=== PATIENT | female | born 1965 | race Caucasian/White ===

== ENCOUNTER 2017-03-07 14:34 | Observation (INO) | payer MEDICAID ==
[~2017-03-07] VITALS: Ht 157.5 cm; Wt 77.1 kg
[~2017-03-07 14:34] MED LIST: CHOL20007 OR; GABA-498 PO; GLIP-115 PO; LACO200T PO; METF-370 PO; NOR10T PO; TIZA4CAP5 PO; TOPI200T43 PO; VENL37.56 PO
[2017-03-07] MEDS ORDERED: SODIUM CHLORIDE 0.9% 1,000 ML IVB ONE (16:12)
[2017-03-07] MEDS ORDERED: ONDANSETRON HCL 4 MG/2 ML VIAL IV ONE (16:15)
[2017-03-07 17:00] LABS: Basophils # (auto) 0.1 uL; Basophils % (auto) 0.6 % (0.0-2.0); CONDITION Y; Eosinophils # (auto) 0.3 uL; Eosinophils % (auto) 2.5 % (0.0-7.0); Hematocrit 42.2 % (36.0-46.0); Lymphocytes # (auto) 4.2 uL; Lymphocytes % (auto) 41.7 % (10.0-50.0); Mean Corpuscular Hgb Conc. 33.2 g/dL (32.0-36.0); Mean Corpuscular Volume 93.4 fL (80.0-100.0); Mean Platelet Volume 8.8 fL (7.4-10.4); Monocytes # (auto) 0.5 uL; Neutrophils # (auto) 5.1 uL; Neutrophils % (auto) 50.2 % (37.0-80.0); Platelet Count (auto) 257 10^3/uL (140-450); Red Cell Distribution Width 12.8 % (11.6-16.0); White Blood Cell 10.1 10^3/uL (4.4-10.8)
[2017-03-07 17:14] LABS: INR 0.89 (0.9-1.15); Partial Thromboplastin Time 25.5 sec (22.64-33.71); Prothrombin Time 9.7 sec (9.37-12.3)
[2017-03-07 17:26] LABS: Albumin 3.6 g/dL (3.4-5.0); Anion Gap 9 (5-15); Aspartate Aminotransferase 12 U/L (15-37); BUN/Creatinine Ratio 16.7; Blood Urea Nitrogen 18 mg/dL (7-18); Calcium 8.4 mg/dL (8.5-10.1); Carbon Dioxide 23 mmol/L (21-32); Chloride 112 mmol/L (98-107); GFR African American 69 mL/min; GFR Non-African American 57 mL/min; Glucose 91 mg/dL (74-106); Magnesium 2.3 mg/dL (1.6-2.6); Potassium 4.3 mmol/L (3.5-5.1); Sodium 144 mmol/L (136-145)
[2017-03-07 17:31] LABS: Alkaline Phosphatase 90 U/L (45-117); Bilirubin, Total 0.2 mg/dL (0.2-1.0); Total Protein 7.9 g/dL (6.4-8.2)
[2017-03-07] MEDS ORDERED: HYDROcodone-ACET 5/325MG TAB PO ONE (19:30)
[2017-03-07 19:39] VITALS: BP 113/61
== END 2017-03-07 20:47 | disposition home or self-care (01) | DRG 53 ==
LOC: EDBD 14:34 → ER 14:34 → OVERFLOW 16:13 → ER 20:47
PROVIDERS: ADMIT Family Medicine; ATTEND Family Medicine
DX: R56.9 Unspecified convulsions (principal); I10 Essential (primary) hypertension; E11.9 Type 2 diabetes mellitus without complications; Z87.891 Personal history of nicotine dependence; Z82.3 Family history of stroke; Z82.49 Family history of ischemic heart disease and other diseases of the circulatory system; Z83.3 Family history of diabetes mellitus; Z86.011 Personal history of benign neoplasm of the brain; W01.10XA Fall on same level from slipping, tripping and stumbling with subsequent striking against unspecified object, initial encounter; Y93.89 Activity, other specified; Y92.89 Other specified places as the place of occurrence of the external cause; Y99.8 Other external cause status
CPT/HCPCS: 36415; 70450; 71010; 80053; 83735; 84484; 85025; 85610; 85730; 96361; 96374; G0378; J2405

== ENCOUNTER 2020-03-12 10:51 | Emergency (ER) | payer MEDICAID ==
[~2020-03-12] VITALS: Ht 144.8 cm; Wt 68.9 kg
[~2020-03-12 10:51] MED LIST changes: -GABA-498 PO; +GABA400C11 PO; -GLIP-115 PO; +GLIP5TAB12 PO; +TIZA4CAP PO; -TIZA4CAP5 PO; +VENL37.511 PO; -VENL37.56 PO
[2020-03-12 11:09] VITALS: BP 151/98
== END 2020-03-12 13:18 | disposition home or self-care (01) ==
LOC: ER 10:51
DX: R50.9 Fever, unspecified (principal); R07.89 Other chest pain; J02.9 Acute pharyngitis, unspecified; E11.9 Type 2 diabetes mellitus without complications; K21.9 Gastro-esophageal reflux disease without esophagitis; I10 Essential (primary) hypertension; F41.9 Anxiety disorder, unspecified; F32.9 Major depressive disorder, single episode, unspecified; Z20.828 Contact with and (suspected) exposure to other viral communicable diseases; Z90.49 Acquired absence of other specified parts of digestive tract; Z79.899 Other long term (current) drug therapy; Z87.891 Personal history of nicotine dependence; Z88.1 Allergy status to other antibiotic agents
CPT/HCPCS: 71045; 99284; U0003

== ENCOUNTER 2021-02-21 11:57 | Inpatient (IN) | payer MEDICAID ==
[~2021-02-21] VITALS: Ht 154.9 cm; Wt 69.4 kg
[~2021-02-21 11:57] MED LIST changes: +VENL1TAB97 PO; -VENL37.511 PO
[2021-02-21] MEDS ORDERED: SODIUM CHLORIDE 0.9% 1,000 ML IV ONE (12:15)
[2021-02-21 13:38] LABS: Urine Bacteria NONE SEEN /hpf (None Seen); Urine Blood Negative /uL (Negative); Urine Specific Gravity 1.019 (1.001-1.035); Urine WBC 1 /hpf (0 - 5)
[2021-02-21 14:12] LABS: Basophils # (auto) 0.1 10 ^3/uL (0-0.2); Basophils % (auto) 0.6 % (0.0-2.0); Eosinophils # (auto) 0.1 10 ^3/uL (0-0.8); Eosinophils % (auto) 0.8 % (0.0-7.0); Hematocrit 39.6 % (36.0-46.0); Hemoglobin 13.6 g/dL (12.2-16.2); Lymphocytes # (auto) 1.5 10 ^3/uL (0.4-5.4); Lymphocytes % (auto) 10.3 % (10.0-50.0); Mean Corpuscular Hgb Conc. 34.5 g/dL (32.0-36.0); Mean Corpuscular Volume 92.8 fL (80.0-100.0); Monocytes # (auto) 0.6 10 ^3/uL (0-1.3); Monocytes % (auto) 4.3 % (0.0-12.0); Neutrophils # (auto) 12.3 10 ^3/uL (1.6-8.6); Nucleated Red Blood Cells % 0.1 %; Red Blood Cells 4.26 10^6/uL (4.0-5.20); Red Cell Distribution Width 12.6 % (11.8-14.3); White Blood Cell 14.6 10^3/uL (4.4-10.8)
[2021-02-21 14:33] LABS: Albumin 3.7 g/dL (3.4-5.0); Calcium 8.5 mg/dL (8.5-10.1); Potassium 4.4 mmol/L (3.5-5.1)
[2021-02-21 14:39] LABS: BUN/Creatinine Ratio 21.9; Bilirubin, Total 0.2 mg/dL (0.2-1.0); Total Protein 7.8 g/dL (6.4-8.2)
[2021-02-21] MEDS ORDERED: ENOXAPARIN SOD 80 MG/0.8ML SYRINGE SC ONE (15:30)
[2021-02-21] MEDS ORDERED: LACTULOSE 20Gm/30ML SOLN PO PRN (17:30)
[2021-02-21] MEDS ORDERED: NITROGLYCERIN 0.4 MG SL TAB SL PRN (17:30)
[2021-02-21] MEDS ORDERED: DEXTROSE (50%) 50ML SYRG IV PRN (17:30)
[2021-02-21] MEDS ORDERED: MORPHINE SULFATE INJECTION 2 MG/ML SYRG IV PRN (17:30)
[2021-02-21] MEDS: HYDROcodone-ACET 10/325MG TAB PO PRN (20:51)
[2021-02-21 22:00] VITALS: BP 112/68
[2021-02-21] MEDS: InsuLIN REG 1unit/0.01ml Soln (100units/ml) SC SCH (22:00)
[2021-02-21] MEDS: DOCUSATE SOD 100 MG CAP PO SCH (22:46)
[2021-02-21] MEDS: ACCU-CHEK COMFORT CURVE STRIP VI SCH (22:46)
[2021-02-22] VITALS (10 sets, daily range): BP systolic 95–123; BP diastolic 48–68
[2021-02-22] MEDS ORDERED: PNEUMOCOCCAL VACC POLYS 25 MCG/0.5 ML VIAL IM ONE (01:00)
[2021-02-22] MEDS: HYDROcodone-ACET 10/325MG TAB PO PRN ×3 (02:47→14:40)
[2021-02-22] MEDS ORDERED: HYDR-4902 PO (03:20)
[2021-02-22] MEDS: ACCU-CHEK COMFORT CURVE STRIP VI SCH ×4 (06:47→21:36)
[2021-02-22] MEDS: InsuLIN REG 1unit/0.01ml Soln (100units/ml) SC SCH ×4 (06:47→21:59)
[2021-02-22 07:18] LABS: Basophils # (auto) 0 10 ^3/uL (0-0.2); Basophils % (auto) 0.4 % (0.0-2.0); Eosinophils # (auto) 0.5 10 ^3/uL (0-0.8); Eosinophils % (auto) 4.4 % (0.0-7.0); Hematocrit 37.3 % (36.0-46.0); Hemoglobin 13.1 g/dL (12.2-16.2); Lymphocytes # (auto) 5.2 10 ^3/uL (0.4-5.4); Mean Corpuscular Hemoglobin 32.5 pg (28.0-32.0); Mean Corpuscular Volume 92.8 fL (80.0-100.0); Monocytes # (auto) 0.6 10 ^3/uL (0-1.3); Neutrophils # (auto) 4.1 10 ^3/uL (1.6-8.6); Neutrophils % (auto) 39.2 % (37.0-80.0); Red Blood Cells 4.02 10^6/uL (4.0-5.20); Red Cell Distribution Width 12.6 % (11.8-14.3); White Blood Cell 10.4 10^3/uL (4.4-10.8)
[2021-02-22 07:41] LABS: Albumin 3.3 g/dL (3.4-5.0); Calcium 8.2 mg/dL (8.5-10.1); Potassium 3.5 mmol/L (3.5-5.1)
[2021-02-22 07:45] LABS: BUN/Creatinine Ratio 17.4; Bilirubin, Total 0.3 mg/dL (0.2-1.0)
[2021-02-22] MEDS: DOCUSATE SOD 100 MG CAP PO SCH ×2 (09:55→21:36)
[2021-02-22] MEDS ORDERED: PANTOPRAZOLE 40 MG/10 ML VIAL INJ IV ONE (12:30)
[2021-02-22] MEDS: ONDANSETRON HCL 4 MG/2 ML VIAL IV PRN (21:59)
[2021-02-22] MEDS ORDERED: LORazepam 2MG/ML-1ML VIAL IV PRN (22:15)
[2021-02-23] VITALS (10 sets, daily range): BP systolic 95–128; BP diastolic 45–78
[2021-02-23] MEDS: VENLAFAXINE HCL 37.5mg XR cap PO SCH ×3 (01:48→21:14)
[2021-02-23] MEDS: HYDROcodone-ACET 10/325MG TAB PO PRN ×3 (06:17→16:29)
[2021-02-23] MEDS: ACCU-CHEK COMFORT CURVE STRIP VI SCH ×4 (06:28→21:14)
[2021-02-23] MEDS: InsuLIN REG 1unit/0.01ml Soln (100units/ml) SC SCH ×4 (06:28→21:17)
[2021-02-23 06:43] LABS: Cholesterol 124 mg/dL (< 200)
[2021-02-23 06:46] LABS: HDL Cholesterol 60 mg/dL (40-59); LDL Cholesterol 51 mg/dL (< 100); Triglycerides 56 mg/dL (< 150)
[2021-02-23] MEDS: DOCUSATE SOD 100 MG CAP PO SCH ×2 (10:34→21:13)
[2021-02-23] MEDS: PANTOPRAZOLE 40 MG/10 ML VIAL INJ IV SCH (10:34)
[2021-02-23] MEDS: LACOSAMIDE 50 MG TAB PO SCH ×2 (10:35→21:13)
[2021-02-24] MEDS: HYDROcodone-ACET 10/325MG TAB PO PRN ×4 (03:29→18:13)
[2021-02-24] MEDS: MORPHINE SULFATE INJECTION 2 MG/ML SYRG IV PRN ×4 (04:18→19:44)
[2021-02-24 05:00] VITALS: BP 130/78
[2021-02-24] MEDS: ACCU-CHEK COMFORT CURVE STRIP VI SCH ×4 (06:00→20:52)
[2021-02-24] MEDS: InsuLIN REG 1unit/0.01ml Soln (100units/ml) SC SCH ×4 (06:01→20:49)
[2021-02-24 09:00] VITALS: BP 109/58
[2021-02-24] MEDS: DOCUSATE SOD 100 MG CAP PO SCH ×2 (10:25→20:52)
[2021-02-24] MEDS: VENLAFAXINE HCL 37.5mg XR cap PO SCH ×2 (10:25→20:52)
[2021-02-24] MEDS: PANTOPRAZOLE 40 MG/10 ML VIAL INJ IV SCH (10:25)
[2021-02-24] MEDS: LACOSAMIDE 50 MG TAB PO SCH ×2 (10:25→20:53)
[2021-02-24 13:00] VITALS: BP 141/67
[2021-02-24 16:58] VITALS: BP 111/59
[2021-02-24] MEDS: ONDANSETRON HCL 4 MG/2 ML VIAL IV PRN (19:45)
[2021-02-24 23:39] VITALS: BP 122/65
[2021-02-25] MEDS: MORPHINE SULFATE INJECTION 2 MG/ML SYRG IV PRN ×3 (02:08→16:52)
[2021-02-25] MEDS: ONDANSETRON HCL 4 MG/2 ML VIAL IV PRN (02:08)
[2021-02-25 05:32] VITALS: BP 115/52
[2021-02-25] MEDS: ACCU-CHEK COMFORT CURVE STRIP VI SCH ×4 (05:34→20:44)
[2021-02-25] MEDS: InsuLIN REG 1unit/0.01ml Soln (100units/ml) SC SCH ×4 (05:34→20:43)
[2021-02-25] MEDS: PANTOPRAZOLE 40 MG/10 ML VIAL INJ IV SCH (08:41)
[2021-02-25] MEDS: DOCUSATE SOD 100 MG CAP PO SCH ×2 (08:41→20:44)
[2021-02-25] MEDS: VENLAFAXINE HCL 37.5mg XR cap PO SCH ×2 (08:42→20:44)
[2021-02-25 09:00] VITALS: BP_SYST 11; BP_SYST 111; BP_DIAS 72
[2021-02-25] MEDS: LACOSAMIDE 50 MG TAB PO SCH ×2 (09:47→20:44)
[2021-02-25] MEDS: HYDROcodone-ACET 10/325MG TAB PO PRN (12:04)
[2021-02-25] MEDS ORDERED: KETOROLAC TROMETH 30 MG/ML 1ML VIAL IV ONE (12:45)
[2021-02-25] MEDS ORDERED: KETOROLAC TROMETH 30 MG/ML 1ML VIAL IV PRN (12:45)
[2021-02-25 13:00] VITALS: BP 148/81
[2021-02-25 17:00] VITALS: BP 135/78
[2021-02-25 22:00] VITALS: BP 115/67
[2021-02-26] MEDS: MORPHINE SULFATE INJECTION 2 MG/ML SYRG IV PRN (00:25)
[2021-02-26 05:00] VITALS: BP 108/60
[2021-02-26] MEDS: ACCU-CHEK COMFORT CURVE STRIP VI SCH (05:38)
[2021-02-26] MEDS: InsuLIN REG 1unit/0.01ml Soln (100units/ml) SC SCH (05:38)
[2021-02-26 09:00] VITALS: BP 126/58
[2021-02-26 09:01] VITALS: BP 126/58
[2021-02-26] MEDS: DOCUSATE SOD 100 MG CAP PO SCH (10:00)
[2021-02-26] MEDS: VENLAFAXINE HCL 37.5mg XR cap PO SCH (10:00)
[2021-02-26] MEDS: PANTOPRAZOLE 40 MG/10 ML VIAL INJ IV SCH (10:00)
[2021-02-26] MEDS: LACOSAMIDE 50 MG TAB PO SCH (10:00)
== END 2021-02-26 11:10 | disposition home or self-care (01) | DRG 53 ==
LOC: EDBD 11:57 → ER 11:57 → TELE 17:17 → TELE-WESTW 20:10
PROVIDERS: ADMIT Internal Medicine; ATTEND Internal Medicine
PROC: 3E00X4Z Introduction of Serum, Toxoid and Vaccine into Skin and Mucous Membranes, External Approach (ICD-10-PCS; principal; 2021-02-21)
DX: G40.909 Epilepsy, unspecified, not intractable, without status epilepticus (principal); E03.9 Hypothyroidism, unspecified; E11.9 Type 2 diabetes mellitus without complications; K59.00 Constipation, unspecified; F41.9 Anxiety disorder, unspecified; K20.90 Esophagitis, unspecified without bleeding; K29.70 Gastritis, unspecified, without bleeding; Z80.0 Family history of malignant neoplasm of digestive organs; Z80.1 Family history of malignant neoplasm of trachea, bronchus and lung; Z80.3 Family history of malignant neoplasm of breast; Z80.51 Family history of malignant neoplasm of kidney; Z82.49 Family history of ischemic heart disease and other diseases of the circulatory system; Z82.3 Family history of stroke; Z83.3 Family history of diabetes mellitus; Z86.011 Personal history of benign neoplasm of the brain; Z87.891 Personal history of nicotine dependence; Z91.410 Personal history of adult physical and sexual abuse; I10 Essential (primary) hypertension; F32.9 Major depressive disorder, single episode, unspecified; K21.9 Gastro-esophageal reflux disease without esophagitis; Z20.822 Contact with and (suspected) exposure to COVID-19; Z88.1 Allergy status to other antibiotic agents; Z88.8 Allergy status to other drugs, medicaments and biological substances; G43.909 Migraine, unspecified, not intractable, without status migrainosus; H81.319 Aural vertigo, unspecified ear; Z23 Encounter for immunization
CPT/HCPCS: 36415; 70551; 71045; 74176; 80053; 80061; 81001; 82962; 83036; 83690; 84484; 85025; 85049; 87081; 87426; 93005; 96360; 96361; 96372; C9113; G0378; J1815; J1885; J2405

== ENCOUNTER 2022-02-08 15:56 | Inpatient (IN) | payer MEDICAID ==
[~2022-02-08] VITALS: Ht 144.8 cm; Wt 65.9 kg
[~2022-02-08 15:56] MED LIST changes: -CHOL20007 OR; -GABA400C11 PO; +HYDR-4902 PO; -NOR10T PO
[2022-02-08] MEDS ORDERED: LACTATED RINGER'S 1,000 ML IV ONE (20:30)
[2022-02-08] MEDS ORDERED: DexAMETHasone SOD PHOS 10MG/1ML VIAL INJ IV ONE (20:30)
[2022-02-08] MEDS ORDERED: METOCLOPRAMIDE HCL 5MG/ml INJ 2ml VIAL IV ONE (20:30)
[2022-02-08] MEDS ORDERED: MAGNESIUM SULFATE 1GM/100ML 100 ML IV ONE (20:30)
[2022-02-08] MEDS ORDERED: HYDROcodone-ACET 5/325MG TAB PO ONE (20:30)
[2022-02-08] MEDS ORDERED: diphenhdrAMINE HCL 50 MG/1 ML VL IV ONE (20:30)
[2022-02-08 21:14] LABS: Basophils # (auto) 0.1 10 ^3/uL (0-0.2); Basophils % (auto) 0.7 % (0.0-2.0); Eosinophils # (auto) 0.5 10 ^3/uL (0-0.8); Eosinophils % (auto) 3.9 % (0.0-7.0); Hematocrit 40.5 % (36.0-46.0); Hemoglobin 13.3 g/dL (12.2-16.2); Lymphocytes # (auto) 5.8 10 ^3/uL (0.4-5.4); Lymphocytes % (auto) 48.4 % (10.0-50.0); Mean Corpuscular Hemoglobin 30.6 pg (28.0-32.0); Mean Corpuscular Hgb Conc. 32.9 g/dL (32.0-36.0); Mean Corpuscular Volume 93.2 fL (80.0-100.0); Monocytes # (auto) 0.8 10 ^3/uL (0-1.3); Monocytes % (auto) 6.4 % (0.0-12.0); Neutrophils # (auto) 4.9 10 ^3/uL (1.6-8.6); Neutrophils % (auto) 40.6 % (37.0-80.0); Red Blood Cells 4.35 10^6/uL (4.0-5.20); Red Cell Distribution Width 12.5 % (11.8-14.3)
[2022-02-08 21:48] LABS: Albumin 3.3 g/dL (3.4-5.0); Magnesium 1.7 mg/dL (1.6-2.6); Potassium 3.7 mmol/L (3.5-5.1)
[2022-02-08 21:51] LABS: Bilirubin, Total 0.2 mg/dL (0.2-1.0); Total Protein 6.7 g/dL (6.4-8.2)
[2022-02-09] MEDS ORDERED: MORPHINE SULFATE INJ 2 MG/ml SYRG IV PRN (02:15)
[2022-02-09] MEDS ORDERED: NITROGLYCERIN 0.4 MG SL TAB SL PRN (02:15)
[2022-02-09] MEDS: HYDROcodone-ACET 5/325MG TAB PO PRN ×2 (02:40→09:47)
[2022-02-09 06:20] LABS: Basophils # (auto) 0 10 ^3/uL (0-0.2); Basophils % (auto) 0.2 % (0.0-2.0); Eosinophils # (auto) 0 10 ^3/uL (0-0.8); Eosinophils % (auto) 0.1 % (0.0-7.0); Hematocrit 41.3 % (36.0-46.0); Hemoglobin 13.5 g/dL (12.2-16.2); Lymphocytes # (auto) 1.2 10 ^3/uL (0.4-5.4); Lymphocytes % (auto) 18.3 % (10.0-50.0); Mean Corpuscular Hemoglobin 30.8 pg (28.0-32.0); Mean Corpuscular Hgb Conc. 32.7 g/dL (32.0-36.0); Mean Corpuscular Volume 94.2 fL (80.0-100.0); Monocytes # (auto) 0.1 10 ^3/uL (0-1.3); Monocytes % (auto) 1.4 % (0.0-12.0); Neutrophils # (auto) 5.1 10 ^3/uL (1.6-8.6); Red Blood Cells 4.38 10^6/uL (4.0-5.20); Red Cell Distribution Width 12.3 % (11.8-14.3); White Blood Cell 6.4 10^3/uL (4.4-10.8)
[2022-02-09 06:38] LABS: Albumin 3.6 g/dL (3.4-5.0); Calcium 9.1 mg/dL (8.5-10.1); Potassium 4.7 mmol/L (3.5-5.1)
[2022-02-09 06:42] VITALS: BP 127/64
[2022-02-09 06:42] LABS: BUN/Creatinine Ratio 24.2; Bilirubin, Total 0.3 mg/dL (0.2-1.0); Total Protein 7.8 g/dL (6.4-8.2)
[2022-02-09 08:57] VITALS: BP 109/65
[2022-02-09] MEDS: glipiZIDE 5 MG TAB PO SCH ×2 (09:46→21:33)
[2022-02-09] MEDS ORDERED: metFORMIN HYDROCHLORIDE 500 MG TAB PO SCH (10:00)
[2022-02-09 13:00] VITALS: BP 107/69
[2022-02-09] MEDS ORDERED: ATOR20TA PO (13:18)
[2022-02-09] MEDS ORDERED: LOSA25TA38 PO (13:18)
[2022-02-09] MEDS ORDERED: METF-490 PO (13:18)
[2022-02-09] MEDS ORDERED: ASPI-543 PO (13:18)
[2022-02-09] MEDS ORDERED: TIZA2CAP12 PO (13:18)
[2022-02-09] MEDS ORDERED: IBUP800T27 PO (13:18)
[2022-02-09] MEDS ORDERED: SUMAtriptan SUCCINATE 6 MG/0.5 ML VL SC PRN (14:30)
[2022-02-09] MEDS: MORPHINE SULFATE 4 MG/ML SYR/VIAL IV PRN ×2 (14:43→21:14)
[2022-02-09] MEDS ORDERED: KETOROLAC TROMETH 30 MG/ML 1ML VIAL IV ONE (15:00)
[2022-02-09 16:57] VITALS: BP 111/69
[2022-02-09] MEDS: ASPirin 81 mg TAB PO SCH (17:34)
[2022-02-09] MEDS ORDERED: LORazepam 2MG/ML-1ML VIAL IV PRN (20:15)
[2022-02-09] MEDS: LACOSAMIDE 50 MG TAB PO SCH (21:18)
[2022-02-09] MEDS: METOCLOPRAMIDE HCL 10 MG TAB PO SCH (21:19)
[2022-02-09] MEDS: ATORVASTATIN 20 MG TAB PO SCH (21:19)
[2022-02-09] MEDS: VENLAFAXINE HCL 37.5MG TABLET PO SCH (21:20)
[2022-02-09 22:00] VITALS: BP 135/71
[2022-02-09] MEDS ORDERED: LACOSAMIDE 50 MG TAB PO SCH (22:00)
[2022-02-10] MEDS: SODIUM CHLORIDE 0.9% 1,000 ML IV SCH ×3 (00:29→12:19)
[2022-02-10 05:00] VITALS: BP 119/57
[2022-02-10] MEDS: METOCLOPRAMIDE HCL 10 MG TAB PO SCH ×3 (05:28→22:13)
[2022-02-10 06:29] LABS: Basophils # (auto) 0 10 ^3/uL (0-0.2); Basophils % (auto) 0.3 % (0.0-2.0); Eosinophils # (auto) 0.4 10 ^3/uL (0-0.8); Eosinophils % (auto) 2.9 % (0.0-7.0); Hematocrit 37.4 % (36.0-46.0); Hemoglobin 12.1 g/dL (12.2-16.2); Lymphocytes # (auto) 5.5 10 ^3/uL (0.4-5.4); Lymphocytes % (auto) 44.1 % (10.0-50.0); Mean Corpuscular Hemoglobin 30.5 pg (28.0-32.0); Mean Corpuscular Hgb Conc. 32.3 g/dL (32.0-36.0); Mean Corpuscular Volume 94.5 fL (80.0-100.0); Monocytes # (auto) 0.7 10 ^3/uL (0-1.3); Monocytes % (auto) 5.9 % (0.0-12.0); Neutrophils # (auto) 5.8 10 ^3/uL (1.6-8.6); Neutrophils % (auto) 46.8 % (37.0-80.0); Red Blood Cells 3.95 10^6/uL (4.0-5.20); Red Cell Distribution Width 12.5 % (11.8-14.3); White Blood Cell 12.5 10^3/uL (4.4-10.8)
[2022-02-10 08:57] VITALS: BP 106/50
[2022-02-10] MEDS: glipiZIDE 5 MG TAB PO SCH ×2 (10:05→22:16)
[2022-02-10] MEDS: LACOSAMIDE 50 MG TAB PO SCH ×2 (10:05→22:16)
[2022-02-10] MEDS: ASPirin 81 mg TAB PO SCH (10:05)
[2022-02-10] MEDS: MORPHINE SULFATE 4 MG/ML SYR/VIAL IV PRN (10:07)
[2022-02-10] MEDS: DexAMETHasone INJECTION 10 MG in D5W 5% 50 ML IV SCH (12:13)
[2022-02-10 12:32] LABS: BUN/Creatinine Ratio 27.1; Calcium 9.5 mg/dL (8.5-10.1); Potassium 5.2 mmol/L (3.5-5.1)
[2022-02-10 13:00] VITALS: BP 105/42
[2022-02-10 16:42] VITALS: BP 98/40
[2022-02-10 22:00] VITALS: BP 110/55
[2022-02-10] MEDS: VENLAFAXINE HCL 37.5MG TABLET PO SCH (22:14)
[2022-02-10] MEDS: ATORVASTATIN 20 MG TAB PO SCH (22:15)
[2022-02-10] MEDS: HYDROcodone-ACET 10/325MG TAB PO PRN (23:10)
[2022-02-11 05:00] VITALS: BP 123/67
[2022-02-11 05:28] LABS: Basophils # (auto) 0 10 ^3/uL (0-0.2); Basophils % (auto) 0.1 % (0.0-2.0); Eosinophils # (auto) 0 10 ^3/uL (0-0.8); Eosinophils % (auto) 0.1 % (0.0-7.0); Hematocrit 36.4 % (36.0-46.0); Hemoglobin 11.8 g/dL (12.2-16.2); Lymphocytes # (auto) 2.2 10 ^3/uL (0.4-5.4); Lymphocytes % (auto) 17.7 % (10.0-50.0); Mean Corpuscular Hemoglobin 30.6 pg (28.0-32.0); Mean Corpuscular Hgb Conc. 32.5 g/dL (32.0-36.0); Mean Corpuscular Volume 94.1 fL (80.0-100.0); Monocytes # (auto) 0.7 10 ^3/uL (0-1.3); Monocytes % (auto) 5.5 % (0.0-12.0); Neutrophils # (auto) 9.5 10 ^3/uL (1.6-8.6); Neutrophils % (auto) 76.6 % (37.0-80.0); Red Blood Cells 3.87 10^6/uL (4.0-5.20); Red Cell Distribution Width 12.5 % (11.8-14.3); White Blood Cell 12.4 10^3/uL (4.4-10.8)
[2022-02-11 05:44] LABS: BUN/Creatinine Ratio 30.4; Calcium 9.2 mg/dL (8.5-10.1); Potassium 5.4 mmol/L (3.5-5.1)
[2022-02-11] MEDS: METOCLOPRAMIDE HCL 10 MG TAB PO SCH ×3 (05:50→21:56)
[2022-02-11] MEDS: HYDROcodone-ACET 10/325MG TAB PO PRN (06:51)
[2022-02-11 09:00] VITALS: BP 129/72
[2022-02-11] MEDS: DexAMETHasone INJECTION 10 MG in D5W 5% 50 ML IV SCH (09:09)
[2022-02-11] MEDS: ASPirin 81 mg TAB PO SCH (09:10)
[2022-02-11] MEDS: glipiZIDE 5 MG TAB PO SCH ×2 (09:15→21:56)
[2022-02-11] MEDS: LACOSAMIDE 50 MG TAB PO SCH ×2 (10:09→21:57)
[2022-02-11] MEDS ORDERED: FUROSEMIDE 40 MG/4 ML VIAL IV ONE (12:00)
[2022-02-11] MEDS ORDERED: SODIUM ZIRCONIUM CYCL 10 GM PAK PO ONE (12:00)
[2022-02-11 13:00] VITALS: BP 112/76
[2022-02-11] MEDS: MORPHINE SULFATE 4 MG/ML SYR/VIAL IV PRN ×2 (14:31→22:16)
[2022-02-11 16:46] VITALS: BP 116/62
[2022-02-11 21:38] VITALS: BP 129/59
[2022-02-11] MEDS: VENLAFAXINE HCL 37.5MG TABLET PO SCH (21:55)
[2022-02-11] MEDS: ATORVASTATIN 20 MG TAB PO SCH (21:56)
[2022-02-12 05:13] VITALS: BP 126/69
[2022-02-12] MEDS: METOCLOPRAMIDE HCL 10 MG TAB PO SCH (05:41)
[2022-02-12 09:00] VITALS: BP 118/68
[2022-02-12] MEDS: DexAMETHasone INJECTION 10 MG in D5W 5% 50 ML IV SCH (09:01)
[2022-02-12] MEDS: ASPirin 81 mg TAB PO SCH (09:01)
[2022-02-12] MEDS: glipiZIDE 5 MG TAB PO SCH (09:04)
[2022-02-12] MEDS: LACOSAMIDE 50 MG TAB PO SCH (11:10)
[2022-02-12 12:10] VITALS: BP 105/59
[2022-02-12 13:00] VITALS: BP 141/75
== END 2022-02-12 14:50 | disposition home health service (06) | DRG 54 ==
LOC: ER 15:56 → TELE 02-09 02:02 → TELE-WESTW 02-09 06:10
PROVIDERS: ADMIT Internal Medicine; ATTEND Internal Medicine
DX: G43.911 Migraine, unspecified, intractable, with status migrainosus (principal); G40.209 Localization-related (focal) (partial) symptomatic epilepsy and epileptic syndromes with complex partial seizures, not intractable, without status epilepticus; I16.0 Hypertensive urgency; I10 Essential (primary) hypertension; Z20.822 Contact with and (suspected) exposure to COVID-19; E11.9 Type 2 diabetes mellitus without complications; E66.9 Obesity, unspecified; Z79.82 Long term (current) use of aspirin; Z79.899 Other long term (current) drug therapy; Z80.0 Family history of malignant neoplasm of digestive organs; Z80.1 Family history of malignant neoplasm of trachea, bronchus and lung; Z80.3 Family history of malignant neoplasm of breast; Z80.51 Family history of malignant neoplasm of kidney; Z82.3 Family history of stroke; Z82.49 Family history of ischemic heart disease and other diseases of the circulatory system; Z83.3 Family history of diabetes mellitus; Z86.011 Personal history of benign neoplasm of the brain; Z87.891 Personal history of nicotine dependence; Z86.73 Personal history of transient ischemic attack (TIA), and cerebral infarction without residual deficits; Z90.49 Acquired absence of other specified parts of digestive tract; I25.2 Old myocardial infarction; Z88.8 Allergy status to other drugs, medicaments and biological substances; Z68.29 Body mass index [BMI] 29.0-29.9, adult; Z79.84 Long term (current) use of oral hypoglycemic drugs
CPT/HCPCS: 36415; 70450; 71045; 80048; 80053; 82962; 83735; 84132; 84484; 85025; 93005; 96365; 96375; G0378; J1100; J1885; J7060

== ENCOUNTER 2025-02-22 13:12 | Emergency (ER) | payer MEDICAID ==
[~2025-02-22] VITALS: Ht 144.8 cm; Wt 57.0 kg
[~2025-02-22 13:12] MED LIST changes: +ASPI-543 PO; +ATOR20TA PO; -GLIP5TAB12 PO; +IBUP-1456 PO; +LOSA-533 PO; -METF-370 PO; +METF-490 PO; +TIZA2CAP13 PO; -TIZA4CAP PO; -TOPI200T43 PO
--- NOTE | 2025-02-22 13:58 | ED.PDOC ---
History of Present Illness HPI Comments A 59-YEAR-OLD FEMALE PRESENTS WITH A CHIEF COMPLAINT OF FALL. PATIENT STATES THAT SHE HAD A MECHANICAL TRIP AND FALL. PATIENT MENTIONS THAT SHE HIT THE LOWER PART OF HER BACK ON THE SIDE OF THE TUB IN HER RESTROOM. PATIENT HAS NO BRUISING FROM THE FALL. PATIENT ALSO REPORTS THAT SHE DID NOT HIT HER HEAD OR LOSE CONSCIOUSNESS FROM THE FALL. SHE HAS HX OF CHRONIC LOWER BACK PAIN AND IS UNDER PAIN MANAGEMENT CARE AND TAKES PAIN MEDICATION AT HOME. FALL AGGRAVATED HER LOWER BACK PAIN. PT DENIES ANY OTHER BODY INJURY. NO OTHER SYMPTOMS OR MODIFYING FACTORS PRESENT AT THIS TIME. Chief Complaint: Back Pain Time Seen by MD: 13:20 Primary Care Provider: FELICIA Reviewed Notes: Nurses Notes, Medications, Allergies Allergies: Coded Allergies: Carbamazepine (Verified Allergy, Severe, 02/19/10) THROAT CLOSES OFF Phenytoin (Verified Allergy, Severe, 02/19/10) THROAT CLOSES OFF AND RASH Amoxicillin (Verified Allergy, Unknown, 02/21/21) Home Meds Reported Medications Aspirin (Aspir-Low) 81 Mg Tab, 81 MG PO DAILY 02/09/22 Atorvastatin Calcium (Lipitor) 20 Mg Tab, 1 TAB PO DAILY 02/09/22 Ibuprofen (Ibuprofen) 800 Mg Tab, 800 MG PO Q6HR PRN for PAIN SCALE 1 THRU 6 02/09/22 Losartan Potassium (Losartan Potassium) 25 Mg Tab, 1 TAB PO DAILY 02/09/22 Tizanidine HCl (Tizanidine Hydrochloride) 2 Mg Cap, 2 MG PO Q12HR MUSCLE RELAXANT 02/09/22 Metformin Hydrochloride (METFORMIN HCL ER) 1,000 Mg Tab, 1 TAB PO BID 02/09/22 Hydrocodone-Acetaminophen (Hydrocodone Bitartrate/AC 5-325 mg) 1 Tab Tab, 1 TAB PO Q6HR PRN for PAIN SCALE 7 THRU 10 02/22/21 Lacosamide (Vimpat) 200 Mg Tab, 1 TAB PO BID 11/11/15 Venlafaxine Hydrochloride (Venlafaxine Hcl) 37.5 Mg Tab, 37.5 MG PO HS 11/11/15 Information Source: Patient Mode of Arrival: Wheelchair Severity: Moderate Timing: Hours Duration: Since onset Prehospital treatment: None Medication Refill: For: Other (LOWER BACK PAIN POST FALL.) Past Medical History PAST MEDICAL HISTORY: CVA, DM, HTN, PR, Seizures Past Medical History (Other): CHRONIC LOW BACK PAIN Surgical History: BTL, Cholecystectomy FURNITURE SHAMPOOER History: No Pertinent FURNITURE SHAMPOOER History Family History Family History: Family hx of DM, Family hx of Cancer, Family hx of heart pastor Social History Smoker: Quit Less Than 1 Year, Cigarettes Alcohol: Rarely Drugs: Denies Drug Use Lives In: Home Constitutional: denies: chills, diaphoresis, fatigue, fever, malaise, sweats, weakness, others EENTM: denies: blurred vision, double vision, ear bleeding, ear discharge, ear drainage, ear pain, ear ringing, eye pain, eye redness, hearing loss, mouth pain, mouth swelling, nasal discharge, nose bleeding, nose congestion, nose pain, photophobia, tearing, throat pain, throat swelling, voice changes, others Respiratory: denies: cough, hemoptysis, orthopnea, SOB at rest, shortness of breath, SOB with excertion, stridor, wheezing, others Cardiovascular: denies: chest pain, dizzy spells, diaphoresis, Dyspnea on exertion, edema, irregular heart beat, left arm pain, lightheadedness, palpitations, PND, syncope, others Gastrointestinal: denies: abdomen distended, abdominal pain, blood streaked bowels, constipated, diarrhea, dysphagia, difficulty swallowing, hematemesis, melena, nausea, poor appetite, poor fluid intake, rectal bleeding, rectal pain, vomiting, others Genitourinary: denies: abnormal vagina bleeding, burning, dyspareunia, dysuria, flank pain, frequency, hematuria, incontinence, pain, , vagina discharge, urgency, others Neurological: denies: dizziness, fainting, headache, left sided numbness, left sided weakness, numbness, paresthesia, pre-existing deficit, right sided numbness, right sided weakness, seizure, speech problems, tingling, tremors, weakness, others Musculoskeletal: reports: back pain, muscle pain; denies: gout, joint pain, joint swelling, muscle stiffness, neck pain, others Integumetry: denies: bruises, change in color, change in hair/nails, dryness, laceration, lesions, lumps, rash, wounds, others Allergic/Immunocompromised: denies: Difficulty Healing, Frequent Infections, Hives, Itching, others Hematologic/Lymphatic: denies: anemia, blood clots, easy bleeding, easy bruising, swollen glands, others Endocrine: denies: excessive hunger, excessive sweating, excessive thirst, excessive urination, flushing, intolerance to cold, intolerance to heat, unexplained weight gain, unexplained weight loss, others Psychiatric: denies: anxiety, bipolar disorder, depression, hopeless, panic disorder, schizophrenia, sleepless, suicidal, others All Other Systems: Reviewed and Negative Physical Exam General Appearance: No Apparent Distress, Normal HEENT: Normal ENT Inspection, PERRL/EOMI, Pharynx Normal, TMs Normal Neck: Full Range of Motion, Non-Tender, Normal, Normal Inspection Respiratory: Chest Non-Tender, Lungs Clear, No Accessory Muscle Use, No Respiratory Distress, Normal Breath Sounds Cardiovascular: No Edema, No JVD, No Murmur, No Gallop, Normal Peripheral Pulses, Regular Rate/Rhythm Breast Exam: Deferred Gastrointestinal: No Organomegaly, Non Tender, No Pulsatile Mass, Normal Bowel Sounds, Soft Genitalia: Deferred Pelvic: Deferred Rectal: Deferred Extremities: No calf tenderness, Normal capillary refill, Normal inspection, Normal range of motion, Non-tender, No pedal edema Musculoskeletal : Location: Bilateral Extremity Location: Back Apperance: Tenderness (AND MUSCLE SPASM ON LOWER BACK, NO BONY TENDERNESS, SWELLING AND DEFORMITY. 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 Was a procedure done?: No Differential Dx Considerations may include: LOWER BACK STRAIN, CHRONIC LOWER BACK PAIN EXACERBATION, DDD OF LOWER BACK X-Ray, Labs, Meds, VS Vital Signs Date Time Temp Pulse Resp B/P (MAP) Pulse Ox O2 Delivery O2 Flow Rate FiO2 02/22/25 15:00 86 18 98 Room Air 02/22/25 15:00 97.9 87 17 117/67 (84) 98 97.9 02/22/25 13:15 99.5 88 16 132/79 (96) 97 99.5 Current Medications Medications (Trade) Dose Ordered Sig/Selena Route Start Time Stop Time Status Last Admin Ketorolac Tromethamine (Toradol Injection) 60 mg ONCE ONCE IM 02/22/25 14:00 02/22/25 14:01 DC 02/22/25 14:00 PATIENT: RAVI GUTIERREZT: [id number]: [id number] : 1965 LOC: ER ROOM / BED: / AGE / SEX: 59 / F ADM STATUS: REG ER SERVICE [id number] ORDERING PHYSICIAN: MAGDA DAILEY PROCEDURE(s): LUMB2 - LUMBAR SPINE 3 VIEW REASON: FALL ORDER NUMBER(s): [id number], ACCESSION NUMBER(s): [id number] CLINICAL INDICATION: FALL TECHNIQUE: 2 radiographic views of the lumbar spine were obtained. Comparison: None FINDINGS/IMPRESSION: There is no evidence of acute fracture or dislocation. Bony spondylosis degenerative changes worse L4-5 The alignment is anatomical. There is no radiopaque foreign body. ATED BY: KRISTY EVANS Jr., DO DICTATED DATE/TIME: 02/22/251433 SIGNED BY: KRISTY EVANS Jr., SIGNED DATE/TIME: 02/22/251433 CC: X-Ray, Labs, Meds, VS Comment EXTERNAL MEDICAL RECORDS: NONE INDEPENDENT HISTORIANS: NONE SOCIAL DETERMINANTS OF HEALTH: NONE LABS ORDERED: NONE REVIEWED AND INTERPRETED RESULTS: NONE IMAGING ORDERED: NONE TREATMENTS ORDERED: TORADOL 60MG IM PATIENT'S CASE AND RESULTS HAVE BEEN DISCUSSED WITH DR. BARKSDALE AND THEY AGREE WITH MY PLAN OF CARE. PT HAS PAIN MEDICATION AT HOME. I HAVE DISCUSSED IMAGING AND LAB RESULTS WITH THE PATIENT AND HAVE INSTRUCTED THE PATIENT TO FOLLOW UP WITH THEIR PCP IN 1-2 DAYS. THE PATIENT FULLY UNDERSTANDS THEIR RESULTS AND ARE AWARE THEY NEED TO FOLLOW UP WITH THEIR PCP FOR FURTHER EVALUATION IF THEIR SYMPTOMS PERSIST. Time of 1ST Reevaluation: 15:30 Reevaluation 1ST: Improved Patient Education/Counseling: Diagnosis, Treatment, Need For Follow Up Family Education/Counseling: Diagnosis, Treatment, Need For Follow Up Medical Screening: No EMC Exist At This Time SEPSIS Sepsis Screen Date sepsis recognized/suspect: Feb 22, 2025 Time Sepsis recognized/suspect: 1331 Recent Procedure: No On Antibiotic Therapy: No Respiratory Rate >20: No Heart Rate >90: No Temp<36 C (96.8 F) or >38.3 C: No SBP <90 or MAP <65 mmHG: No New Acute Mental Status Change: No Is the patient on CPAP, BIPAP,: No Physician Orders Lumbar Spine 3 View (02/22/25 13:59) Vital Signs Date Time Temp Pulse Resp B/P (MAP) Pulse Ox O2 Delivery O2 Flow Rate FiO2 02/22/25 15:00 86 18 98 Room Air 02/22/25 15:00 97.9 87 17 117/67 (84) 98 97.9 02/22/25 13:15 99.5 88 16 132/79 (96) 97 99.5 Medications Medications Dose Ordered Sig/Selena Route Start Time Stop Time Status Last Admin Dose Admin Ketorolac Tromethamine 60 mg ONCE ONCE IM 02/22/25 14:00 02/22/25 14:01 DC 02/22/25 14:00 Departure 1 Departure Time of Disposition: 15:31 Impression: Primary Impression: DDD (degenerative disc disease) Qualified Codes: M51.360 - Other intervertebral disc degeneration, lumbar region with discogenic back pain only Additional Impression: Low back strain Qualified Codes: S39.012A - Strain of muscle, fascia and tendon of lower back, initial encounter Disposition: HOME / SELF CARE / HOMELESS Condition: Stable Additional Instructions: FOLLOW-UP WITH PCP IN 1 TO 2 DAYS. TAKE MEDICATIONS PRESCRIBED. RETURN TO ED FOR ANY NEW OR WORSENING SYMPTOMS. Discharged With: Self Critical Care Note Critical Care Time?: No Stability Stability form required: No Heart Score Heart Score: Heart Score Response (Comments) Value History N/A 0 EKG N/A 0 Age N/A 0 Risk Factors N/A 0 Troponin N/A 0 Total 0 I personally scribed for MAGDA DAILEY ([email or web address]) on 02/22/25 at 13:58. Electronically submitted by Anuj Syed ([email or web address]). I personally scribed for MAGDA DAILEY ([email or web address]) on 02/22/25 at 14:47. Electronically submitted by Anuj Syed ([email or web address]). MAGDA DAILEY Feb 22, 2025 13:58
[2025-02-22] MEDS: KETOROLAC TROMETH 60MG/2ML VIAL IM ONE (14:00)
--- NOTE | 2025-02-22 14:37 | DVH ---
CLINICAL INDICATION: FALL TECHNIQUE: 2 radiographic views of the lumbar spine were obtained. Comparison: None FINDINGS/IMPRESSION: There is no evidence of acute fracture or dislocation. Bony spondylosis degenerative changes worse L4-5 The alignment is anatomical. There is no radiopaque foreign body.
[2025-02-22 15:00] VITALS: BP 117/67; PULSE 86; RESP 18; TEMP 97.9; O2SAT 98
== END 2025-02-22 15:18 | disposition home or self-care (01) ==
LOC: ER 13:12
DX: S39.012A Strain of muscle, fascia and tendon of lower back, initial encounter (principal); M51.360 Other intervertebral disc degeneration, lumbar region with discogenic back pain only; I10 Essential (primary) hypertension; E11.9 Type 2 diabetes mellitus without complications; G89.29 Other chronic pain; F10.90 Alcohol use, unspecified, uncomplicated; Z87.891 Personal history of nicotine dependence; Z98.51 Tubal ligation status; Z90.49 Acquired absence of other specified parts of digestive tract; Z88.0 Allergy status to penicillin; Z86.73 Personal history of transient ischemic attack (TIA), and cerebral infarction without residual deficits; Z79.899 Other long term (current) drug therapy; Z79.84 Long term (current) use of oral hypoglycemic drugs; Z79.82 Long term (current) use of aspirin; W01.0XXA Fall on same level from slipping, tripping and stumbling without subsequent striking against object, initial encounter; Y93.89 Activity, other specified; Y92.091 Bathroom in other non-institutional residence as the place of occurrence of the external cause; Y99.8 Other external cause status; Y90.9 Presence of alcohol in blood, level not specified
CPT/HCPCS: 72100; 96372; 99283; J1885